=== PATIENT | male | born 2000 | race Two or more races ===

== ENCOUNTER 2024-12-28 22:44 | Emergency (ER) | payer MEDICAID, SELFPAY ==
[2024-12-28 22:54] VITALS: BP 129/79; PULSE 73; RESP 18; TEMP 36.8; O2SAT 95; BMI 29.3
--- NOTE | 2024-12-28 22:59 | PD.EDDENTL ---
ED Dental RME/HPI General Chief complaint: Dental/Oral/Throat Stated complaint: SORE THROAT Time Seen by Provider: 12/28/24 22:51 Source: patient, RN notes reviewed and old records reviewed Arrival date/time: 12/28/24 22:44 Mode of arrival: ambulatory Limitations: no limitations RME / HPI RME / HPI Narrative: 24yom presents to ED for 2-day history of intermittent fever, sore throat. Patient was evaluated in clinic yesterday and prescribed keflex and ibuprofen for strep throat. Patient has taken 2 doses of antibiotic without improvement of symptoms. c/o throat pain with swallowing. No congestion, cough, sob or n/v reported. Related Data Previous Rx's ?Medication ?Instructions ?Recorded acetaminophen 500 mg tablet 1,000 mg (2 x 500 mg) PO Q6H PRN 12/28/24 (Tylenol Extra Strength) pain #30 tabs Allergies Allergy/AdvReac Type Severity Reaction Status Date / Time No Known Allergies Allergy Verified 12/28/24 22:45 Review of Systems Review of Systems Systems Reviewed: All systems reviewed, normal except as documented Constitutional Constitutional: Reports chills, Reports fever(s) and Denies headache(s) ENT Ears, Nose, Mouth, and Throat: Denies headache(s), Denies nasal congestion, Denies neck pain and Reports sore throat Cardiovascular Cardiovascular: Denies dyspnea Respiratory Respiratory: Denies dyspnea Gastrointestinal Gastrointestinal: Denies nausea and Denies vomiting Musculoskeletal Musculoskeletal: Denies neck pain Neurologic Neurologic: Denies headache(s) Past Medical History Surgical History OTHER SURGICAL HX: denies pshx Social History SMOKING STATUS: Never smoker SUBSTANCE USE: does not use ALCOHOL: Never Past Medical History Comments PMH COMMENT: denies pmhx ED Exam General Limitations: Present no limitations General appearance: Present alert and in no apparent distress Head Head exam: Present atraumatic and normocephalic Eye Eye exam: Present normal appearance, PERRL and EOMI ENT ENT exam: Present mucous membranes moist, TM's normal bilaterally and other (Moderate pharyngeal erythema. 2+ tonsillar swelling b/l without exudate, uvula midline) Neck Neck exam: Present normal inspection and full ROM Chest Chest inspection: Present normal inspection and symmetric chest wall rise Respiratory Respiratory exam: Present normal lung sounds bilaterally; Absent respiratory distress, wheezes or stridor Cardiovascular Cardiovascular exam: Present regular rate and normal rhythm Extremities Exam Extremities exam: Present normal inspection and full ROM Neurological Exam Neurological exam: Present alert and oriented X3 Psychiatric Psychiatric exam: Present normal affect and normal mood Skin Skin exam: Present warm, dry, intact and normal color Course Quality Measures none Orders Category Date Time Status Acetaminophen Tab [Tylenol ES Tab] Med 12/28/24 23:00 Discontinued 1,000 mg PO X1 ONE Dexamethasone Inj [Decadron Inj] Med 12/28/24 23:00 Discontinued 10 mg PO X1 ONE Lidocaine 2% Viscous [Xylocaine 2% Viscous] Med 12/28/24 23:00 Discontinued 15 ml PO X1 ONE Vital Signs Vital signs: Vital Signs Temperature 98.3 F 12/28/24 22:54 Pulse Rate 73 12/28/24 22:54 Respiratory Rate 18 12/28/24 22:54 Blood Pressure 129/79 12/28/24 22:54 Pulse Oximetry (%) 95 12/28/24 22:54 Oxygen Delivery Method Room Air 12/28/24 22:54 Dental / Oral MDM Narrative MDM Narrative:: 24yom presents to ED for 2-day history of intermittent fever, sore throat. Patient was evaluated in clinic yesterday and prescribed keflex and ibuprofen for strep throat. Patient has taken 2 doses of antibiotic without improvement of symptoms. c/o throat pain with swallowing. No congestion, cough, sob or n/v reported. Patient reassessed. Pain improved after medications administered. Patient is well-appearing, afebrile, vitals are stable. Recommended completion of antibiotic as prescribed. Motrin/tylenol, cepacol lozenges prn pain. Stable for dc, RTED precautions given. Patient data External records reviewed:: None (no prior visits) Clinical information provided by:: patient Social determinants that could affect healthcare access:: none Patient has the following chronic illnesses:: none How is presenting disease/condition affected by chronic disease/condition?: no chronic disease Evaluation data The following diagnostics were reviewed and interpreted by me:: other (specify) (none) Lab and/or radiology exams considered but not ordered:: strep: patient is already being treated Interpretation Summary: na Medications / Prescriptions Medications or Prescriptions considered but not ordered:: none Medication administrations:: Medication Administration History Discontinued Medications Acetaminophen (Acetaminophen 500 Mg Tablet) 1,000 mg PO X1 ONE Stop: 12/28/24 23:01 Last Admin: 12/28/24 23:11 Dose: 1,000 mg Documented By: DAVY Dexamethasone Sodium Phosphate (Dexamethasone Sod Phos Inj 10 Mg/Ml Vial) 10 mg PO X1 ONE Stop: 12/28/24 23:01 Last Admin: 12/28/24 23:12 Dose: 10 mg Documented By: DAVY Lidocaine HCl (Lidocaine Viscous 2% 15 Ml Udc) 15 ml PO X1 ONE Stop: 12/28/24 23:01 Last Admin: 12/28/24 23:12 Dose: 15 ml Documented By: DAVY above medications administered in ED Consultations Consultation(s) initiated? (list below): No Diagnosis Dental Differential Diagnosis: other (tonsillitis, pharyngitis, gingival abscess, [employer] WORK ADMINISTRATOR, toothache) Most likely diagnosis given after review of the tests above:: pharyngitis Admission Indicated Admission indicated?: not indicated Admission Request Was there a request for admission?: No Disposition Plan Disposition Plan: Discharge Discharge Attestation Discharge Attestation: The patient and all family members were given an opportunity to ask questions and understood the discharge instructions. Discharge instructions specifically effects, indications for sooner follow up or return to the emergency department, and the expected course of current diagnosis. Patient condition: Stable Discharge Plan Plan Patient Disposition: HOME (Self Care) Patient condition on transfer: Stable Prescriptions/Referrals Prescriptions/Med Rec: New acetaminophen [Tylenol Extra Strength] 500 mg tablet 1,000 mg PO Q6H PRN (Reason: pain) Qty: 30 0RF Problem List Clinical Impression: Pharyngitis Patient/Caregiver Discharge Instructions Education Materials: Self-Care for Sore Throats Additional Instructions: Alternate ibuprofen and Tylenol every 3-4 hours as needed for pain. Make sure to finish your antibiotic as prescribed. Cepacol lozenges can also be bought [id number] to soothe your throat. Print Language: Vietnamese Stand Alone Forms: [employer] Award Info., Work/School Release, Patient Portal Info Letter PA/ENEDINA Supervising Physician PA/BATHROOM TILING PROFESSIONAL Supervising Physician: Nhan
[2024-12-28] MEDS: ACETAMINOPHEN 500 MG TABLET 1000 MG PO (23:11)
[2024-12-28] MEDS: LIDOCAINE VISCOUS 2% 15 ML UDC PO (23:12)
[2024-12-28] MEDS: DEXAMETHASONE SOD PHOS INJ 10 MG/ML VIAL PO (23:12)
== END 2024-12-29 00:16 | disposition home or self-care (01) ==
PROVIDERS: Emergency Provider Emergency Medicine
DX: J02.9 Acute pharyngitis, unspecified (principal)
CPT/HCPCS: 99282; J1100; J3490; A9270